=== PATIENT | female | born 1985 | race Caucasian/White ===

== ENCOUNTER 2016-06-08 00:44 | Emergency (ER) | payer MEDICARE, OTHER ==
[~2016-06-08 00:44] MED LIST: GABAPENTIN300 M2 PO; LATUDA20 MG
[2016-06-08 01:00] LABS: INFLUENZA A NEG (NEG); INFLUENZA B NEG (NEG)
[2016-06-26] MEDS ORDERED: LATUDA (02:51)
[2016-06-26] MEDS ORDERED: GABAPENTIN (02:53)
[2016-06-26] MEDS ORDERED: ALBUTEROL17 GM INH (03:00)
== END 2016-06-08 01:35 | disposition home or self-care (01) ==
LOC: SED 00:44
DX: J40 Bronchitis, not specified as acute or chronic (principal); F31.9 Bipolar disorder, unspecified; Z87.891 Personal history of nicotine dependence
CPT/HCPCS: 87651; 87804; 99283

== ENCOUNTER 2016-06-16 16:29 | Emergency (ER) | payer MEDICARE, OTHER ==
--- NOTE | ~2016-06-16 | CR63 ---
[facility] A Service of [facility] RADIOLOGY TEXT RESULTS PATIENT: KIMBERLY REAVES LOCATION: CFTX : 81 UNIT #: [id number] AGE: [address]: ALYSHA RICHARD SEX: F ORDER DR: [id number] [facility] [address] [place], [place] [address] [id number] E MR#: [id number] Acc #: [id number] NAME: KIMBERLY REAVES : 1985 SEX: F STUDY DATE/TIME: 06/16/2016 15:42 UNIT: CFOR ROOM: STUDY DESCRIPTION: CR Chest 2 View Attending Physician: Alysha Richard Aprn Ordering Physician: Ed Mateo Montes M.D. Primary Care Physician: [facility] MEDICAL IMAGING REPORT This report is preliminary unless electronic signature is present EXAM Chest PA and lateral 06/16/2016 HISTORY Cough, chest congestion, shortness of breath and fever with hemoptysis for 3 weeks, asthma and bronchitis. Smoking history for 20 years. FINDINGS The heart is normal in size. The lungs are clear. There are no pleural effusions. IMPRESSION No active pulmonary disease. No change compared with 04/03/2015. Dictated by... Soto Cheung M.D. THIS IS AN ELECTRONICALLY VERIFIED REPORT Soto Cheung M.D. at 06/18/2016 8:17 AM KRT/to TD: 06/16/2016 19:17 JOB #: [id number] MEDICAL IMAGING REPORT Page 1 of 1 COPY
[2016-06-16 15:15] LABS: INFLUENZA A NEG (NEG); INFLUENZA B NEG (NEG)
[2016-06-26] MEDS ORDERED: LATUDA (02:51)
[2016-06-26] MEDS ORDERED: GABAPENTIN (02:53)
[2016-06-26] MEDS ORDERED: ALBUTEROL17 GM INH (03:00)
== END 2016-06-16 16:50 | disposition home or self-care (01) ==
LOC: CFTX 16:29
DX: J02.9 Acute pharyngitis, unspecified (principal); J45.909 Unspecified asthma, uncomplicated; F17.200 Nicotine dependence, unspecified, uncomplicated
CPT/HCPCS: 71020; 87651; 87804; 94640; 99283

== ENCOUNTER 2016-06-26 03:01 | Emergency (ER) | payer MEDICARE, OTHER ==
--- NOTE | ~2016-06-26 | CR210 ---
[facility] A Service of [facility] RADIOLOGY TEXT RESULTS PATIENT: KIMBERLY REAVES LOCATION: SED : 83 UNIT #: [id number] AGE: [address]: Delmar Wu MD SEX: F ORDER DR: [id number] [address] [id number] E MR#: [id number] Acc #: [id number] NAME: KIMBERLY REAVES : 1985 SEX: F STUDY DATE/TIME: 06/26/2016 2:56 UNIT: SED ROOM: STUDY DESCRIPTION: CR Ribs Uni 2 View W PA Ch Lt Attending Physician: Delmar Wu M.D. Ordering Physician: Delmar Wu M.D. Primary Care Physician: [facility], MEDICAL IMAGING REPORT This report is preliminary unless electronic signature is present. EXAM Left rib series with PA chest. HISTORY Left anterior chest pain for a month, patient has been coughing. FINDINGS A PA view of the chest and oblique views of the left ribs were obtained. The heart size and vascularity are normal and the lungs are clear. No rib fracture is visible. IMPRESSION Normal PA chest with left rib series. Dictated by... Nathaniel Carrasco M.D. THIS IS AN ELECTRONICALLY VERIFIED REPORT Nathaniel Carrasco M.D. at 06/26/2016 5:51 AM JESUS/pearl TD: 06/26/2016 04:24 JOB #: [id number] MEDICAL IMAGING REPORT Page 1 of 1
[~2016-06-26 03:01] MED LIST changes: +ALBUTEROL17 GM INH; +GABAPENTIN; +LATUDA
== END 2016-06-26 03:23 | disposition home or self-care (01) ==
LOC: SED 03:01
DX: S29.9XXA Unspecified injury of thorax, initial encounter (principal); X50.1XXA Overexertion from prolonged static or awkward postures, initial encounter
CPT/HCPCS: 71100; 99283

== ENCOUNTER 2016-06-30 16:37 | Emergency (ER) | payer MEDICARE, OTHER ==
--- NOTE | ~2016-06-30 | CT2 ---
[facility] A Service of [facility] RADIOLOGY TEXT RESULTS PATIENT: KIMBERLY REAVES LOCATION: SED : 83 UNIT #: [id number] AGE: [address]: Delmar Cantrell SEX: F ORDER DR: [id number] [place] [id number] E MR#: [id number] Acc #: [id number] NAME: KIMBERLY REAVES : 1985 SEX: F STUDY DATE/TIME: 06/30/2016 16:29 UNIT: SED ROOM: STUDY DESCRIPTION: CT Abd and Pelv W Cont Attending Physician: Delmar Cantrell P.A.-C. Referring Physician: Delmar Cantrell P.A.-C. Ordering Physician: Delmar Cantrell P.A.-C. Primary Care Physician: [facility] IMAGING REPORT This report is preliminary unless electronic signature is present. EXAM CT abdomen and pelvis with IV contrast 06/30/[address] exam was performed with one or more of the following radiation dose reduction techniques: automatic exposure control, adjustment of mA and/or kV according to patient size, and iterative reconstruction. Axial CT abdomen and pelvis with IV contrast with multiplanar reformats. CLINICAL HISTORY 2-week history of gradual onset left side pain associated with cough. FINDINGS Lung bases show no acute disease. Abdomen: The liver is normal. The gallbladder is normal. The spleen and pancreas are normal. The kidneys and adrenal glands are normal. 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 There is no bowel obstruction. The appendix is normal. There is no pelvic mass or adenopathy, inflammatory change. There is no acute bony abnormality. IMPRESSION 1. Negative CT abdomen and pelvis. No renal or bowel or biliary obstruction or other acute abnormality. 2. Normal appendix. 3. No acute findings. [facility] A Service of [facility] RADIOLOGY TEXT RESULTS PATIENT: KIMBERLY REAVES LOCATION: SED : 83 UNIT #: [id number] AGE: [address]: Delmar Cantrell SEX: F ORDER DR: Dictated by... Jonatan Astorga M.D. THIS IS AN ELECTRONICALLY VERIFIED REPORT Jonatan Astorga M.D. at 07/02/2016 9:41 AM TEV/ea TD: 06/30/2016 22:22 JOB #: [id number] MEDICAL IMAGING REPORT Page 1 of 1
--- NOTE | ~2016-06-30 | CT16 ---
[facility] A Service of [facility] RADIOLOGY TEXT RESULTS PATIENT: KIMBERLY REAVES LOCATION: SED : 83 UNIT #: [id number] AGE: [address]: Delmar Cantrell SEX: F ORDER DR: [id number] [place] [id number] E MR#: [id number] Acc #: [id number] NAME: KIMBERLY REAVES : 1985 SEX: F STUDY DATE/TIME: 06/30/2016 18:00 UNIT: SED ROOM: STUDY DESCRIPTION: CT Angio Chest for PE Attending Physician: Delmar Cantrell P.A.-C. Referring Physician: Delmar Cantrell P.A.-C. Ordering Physician: Delmar Cantrell P.A.-C. Primary Care Physician: [facility] IMAGING REPORT This report is preliminary unless electronic signature is present. EXAM CT angiogram with contrast, 06/30/2016 PROCEDURE Axial contrast-enhanced chest CT angiogram with three-dimensional reformats. This CT exam was performed with one or more of the following radiation dose reduction techniques: automatic exposure control, adjustment of mA and/or kV according to patient size, and iterative reconstruction. COMPARISON None. CLINICAL HISTORY Left side pain x2 week. Difficulty breathing/dyspnea. FINDINGS There is no pulmonary infiltrate, pleural effusion, pneumothorax or suspicious nodule with the exception of what appears to be some slight atelectasis or scarring in the right middle lobe. Bolus timing is marginal and body habitus limits assessment but there is no gross evidence of large central emboli but it is a limited assessment. The thoracic aorta is normal in caliber. There is no mediastinal mass. IMPRESSION 1. Study is limited by body habitus. Bolus timing is also marginal. There is no gross evidence of pulmonary embolism but assessment is limited. 2. Thoracic aorta is normal. There is some mild atelectasis or scarring in the right middle lobe but no acute pulmonary process is seen [facility] A Service of [facility] RADIOLOGY TEXT RESULTS PATIENT: KIMBERLY REAVES LOCATION: SED : 83 UNIT #: [id number] AGE: [address]: Delmar Cantrell PAC SEX: F ORDER DR: otherwise. Dictated by... Jonatan Astorga M.D. THIS IS AN ELECTRONICALLY VERIFIED REPORT Jonatan Astorga M.D. at 07/02/2016 9:41 AM SNOW/amarjit TD: 06/30/2016 22:45 JOB #: [id number] MEDICAL IMAGING REPORT Page 1 of 1
[2016-06-30 17:14] LABS: BASOPHIL# 0.1 X10e3 (0-0.3); BASOPHIL% 1.1 % (0-2.5); EOSINOPHIL# 0.2 X10e3 (0-0.7); EOSINOPHIL% 1.6 % (0.0-7.0); HEMOGLOBIN 14.2 gm/dL (12.0-16.0); LYMPHOCYTE# 1.9 X10e3 (1.0-3.5); LYMPHOCYTE% 17.9 % (17.0-45.0); MEAN CELL VOLUME 91.4 FL (83-96); MEAN CORPUSCULAR HEMOGLOBIN 30.3 PG (28-34); MEAN CORPUSCULAR HGB CONC 33.1 g/dL (30-36); MEAN PLATELET VOLUME 9.6 FL (6.5-11.5); MONOCYTE# 0.5 X10e3 (0-1.0); NEUTROPHIL% 74.4 % (40-75); PLATELET COUNT 157 X10e3 (140-420); RED CELL DISTRIBUTION WIDTH 14.3 % (11.0-15.5); WHITE BLOOD COUNT 10.8 X10e3 (4.0-10.5)
[2016-06-30 17:15] LABS: DIFF IND NO
[2016-06-30 17:32] LABS: POC - CKMB 1.3 ng/mL (0.0-7.9); POC - TROPONIN <0.05 ng/mL (<=0.05)
[2016-06-30 17:49] LABS: ALBUMIN SERUM 3.6 g/dL (3.5-5.0); BILIRUBIN, DIRECT 0.1 mg/dL (0.0-0.2); BILIRUBIN,INDIRECT 0.3 mg/dL (0.0-0.9); BILIRUBIN,TOTAL 0.4 mg/dL (0.2-2.0); BUN/CREATININE RATIO 23.33; CALCIUM SERUM 8.8 mg/dL (8.4-10.2); CREATININE SERUM 0.6 mg/dL (0.6-1.4); GLOM FILT RATE Estimated 119.8 mL/min (>60); POTASSIUM 3.5 mmol/L (3.5-5.1); PROTEIN TOTAL SERUM 7.7 g/dL (6.0-8.3)
[2016-06-30 17:57] LABS: URINE SOURCE CLEAN CATCH
[2016-06-30 18:00] LABS: URINE APPEARANCE CLEAR; URINE BILIRUBIN NEG (NEG); URINE BLOOD 1+ (NEG); URINE COLOR YELLOW; URINE GLUCOSE NEG (NORM); URINE KETONE NEG (NEG); URINE LEUKOCYTE ESTERASE NEG (NEG); URINE NITRATE NEG (NEG); URINE PH 5.5 (5-8); URINE PROTEIN NEG (NEG); URINE SPECIFIC GRAVITY 1.015 (1.003-1.035); URINE UROBILINOGEN 0.2 MG/DL (NORM)
[2016-06-30 18:06] LABS: MICRO INDICATED? YES
[2016-06-30 18:11] LABS: CULTURE INDICATED? YES; URINE BACTERIA 1+ (NEG); URINE RBC 0-2 /[HPF] (0-2)
[2016-06-30 18:12] LABS: URINE SQUAMOUS EPITHELIAL CELL FEW /[HPF]
== END 2016-06-30 19:23 | disposition home or self-care (01) ==
LOC: SED 16:37
PROVIDERS: Physician Assistant
DX: R09.1 Pleurisy (principal); R10.9 Unspecified abdominal pain; J45.909 Unspecified asthma, uncomplicated; F31.9 Bipolar disorder, unspecified; G47.30 Sleep apnea, unspecified; F17.210 Nicotine dependence, cigarettes, uncomplicated
CPT/HCPCS: 36415; 71275; 74177; 80048; 80076; 81003; 82553; 84484; 85025; 87086; 96360; 99284; J1885; Q9967